=== PATIENT | male | born 1995 | race Caucasian/White ===

== ENCOUNTER 2021-12-04 12:15 | Emergency (ER) | payer OTHER ==
[~2021-12-04] VITALS: Ht 165.1 cm; Wt 56.7 kg
[2021-12-04 14:42] LABS: HEMOGLOBIN 13.2 gm/dl (14.0-17.5); RED BLOOD COUNT 4.62 M/UL (4.20-5.50); WHITE BLOOD COUNT 5.1 K/UL (4.5-11.0)
[2021-12-04 15:15] LABS: BUN/CREATININE RATIO 12 (0-10)
== END 2021-12-04 16:58 | disposition home or self-care (01) ==
LOC: ER1 12:15
PROVIDERS: Emergency Medicine
DX: U07.1 COVID-19 (principal)
CPT/HCPCS: 0240U; 71045; 80053; 85025; 87040; 87081; 87880; 99284